=== PATIENT | male | born 1950 | race Caucasian/White ===

== ENCOUNTER 2018-11-04 15:29 | Emergency (ER) | payer MEDICARE, OTHER, MEDICAID ==
[~2018-11-04] VITALS: Ht 182.9 cm; Wt 81.6 kg
[2018-11-04 15:34] VITALS: BP 146/102
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
--- NOTE | 2018-11-04 15:41 | NUR ---
AT BEDSIDE EVALUATING PATIENT.
--- NOTE | 2018-11-04 15:43 | NUR ---
PT TO CT VIA [facility]AS ACCOMPANIED BY DIRECTOR TOXICOLOGY
--- NOTE | 2018-11-04 15:57 | NUR ---
PT RETURNED FROM CT VIA GURNEY ACCOMPANIED BY UTILITY AGENT
--- NOTE | 2018-11-04 16:21 | NUR ---
ER MD MCGINNIS BY BEDSIDE RE-EVALUATING PT
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
--- NOTE | 2018-11-04 16:50 | NUR ---
CONTACTED OFFICER JOSE REGARDING PATIENT BELONGINGS THAT WERE LEFT BEHIND. PER OFFICER JOSE, HE WILL BE RETURNING TO [employer]. [facility] ETA.
== END 2018-11-04 16:40 ==
LOC: MED 15:29
DX: S13.4XXA Sprain of ligaments of cervical spine, initial encounter (principal); S00.33XA Contusion of nose, initial encounter; Z02.89 Encounter for other administrative examinations; V89.2XXA Person injured in unspecified motor-vehicle accident, traffic, initial encounter; Y93.89 Activity, other specified; Y92.89 Other specified places as the place of occurrence of the external cause; Y99.8 Other external cause status
CPT/HCPCS: 70486; 72125; 99284